=== PATIENT | male | born 1995 | race Caucasian/White ===

== ENCOUNTER 2021-04-25 14:15 | Emergency (ER) | payer OTHER ==
[~2021-04-25] VITALS: Ht 167.6 cm; Wt 68.0 kg
[2021-04-25 14:15] VITALS: BP 128/80
--- NOTE | 2021-04-25 14:46 | NUR ---
TO CALL [employer] OFFICER FARAZ FOR COVID RESULT OFFICER FARAZ [phone]
--- NOTE | 2021-04-25 14:46 | NUR ---
COVID ANTIGEN SWAB DONE AND SENT TO THE LAB
--- NOTE | 2021-04-25 14:47 | NUR ---
Patient discharged in stable condition with [employer] officers. Written and verbal after care instructions given. Patient and the officers verbalize understanding of instruction.
--- NOTE | 2021-04-25 14:49 | NUR ---
UNABLE TO DEPART THE PATIENT FROM [facility]
--- NOTE | 2021-04-25 16:53 | NUR ---
[employer] OFFICER FARAZ IS MADE AWARE OF COVID NEGATIVE RESULT.
== END 2021-04-25 14:49 ==
LOC: ER 14:21
DX: R68.89 Other general symptoms and signs (principal); Z20.822 Contact with and (suspected) exposure to COVID-19; F19.10 Other psychoactive substance abuse, uncomplicated
CPT/HCPCS: 87426; 99283; C9803